=== PATIENT | female | born 1985 | race Hispanic/Latino ===

== ENCOUNTER 2017-12-31 18:18 | Emergency (ER) | payer SELFPAY ==
[2017-12-31] MEDS ORDERED: Adacel (T-DAP) 0.5 ML VIAL ONE (18:42)
== END 2017-12-31 19:03 | disposition home or self-care (01) ==
LOC: ERS 18:18
DX: L02.211 Cutaneous abscess of abdominal wall (principal); L03.311 Cellulitis of abdominal wall; E11.9 Type 2 diabetes mellitus without complications; F17.210 Nicotine dependence, cigarettes, uncomplicated; Z79.84 Long term (current) use of oral hypoglycemic drugs
CPT/HCPCS: 90471; 90715; 99406

== ENCOUNTER 2018-07-02 12:14 | Emergency (ER) | payer SELFPAY ==
--- NOTE | 2018-07-02 14:25 | RAD ---
4 VIEWS LEFT KNEE: Date: 07/02/18 HISTORY: Pain. FINDINGS: No joint effusion. No fracture or malalignment. Joint spaces are preserved. IMPRESSION: Unremarkable left knee 4 views. POS: [facility]
== END 2018-07-02 13:55 | disposition home or self-care (01) ==
LOC: ERS 12:14
DX: S83.92XA Sprain of unspecified site of left knee, initial encounter (principal); E11.9 Type 2 diabetes mellitus without complications; F17.210 Nicotine dependence, cigarettes, uncomplicated; Z71.6 Tobacco abuse counseling; X50.0XXA Overexertion from strenuous movement or load, initial encounter; Y93.01 Activity, walking, marching and hiking
CPT/HCPCS: 99406

== ENCOUNTER 2018-10-23 17:44 | Emergency (ER) | payer SELFPAY ==
[2018-10-23] MEDS ORDERED: Ketorolac Tromethamine 30 MG/ML VIAL ONE (19:22)
--- NOTE | 2018-10-23 20:35 | RAD ---
LEFT SHOULDER RADIOGRAPHS THREE VIEWS: 10/23/18 PROVIDED CLINICAL HISTORY: Left shoulder pain status post injury. FINDINGS: There is no evidence for fracture or other acute osseous abnormality. If there is persistent clinical concern, conservative management and followup imaging are advised. IMPRESSION: As above. POS: [facility]
== END 2018-10-23 19:55 | disposition home or self-care (01) ==
LOC: ERS 17:44
DX: S40.012A Contusion of left shoulder, initial encounter (principal); E11.9 Type 2 diabetes mellitus without complications; F17.210 Nicotine dependence, cigarettes, uncomplicated; W10.9XXA Fall (on) (from) unspecified stairs and steps, initial encounter
CPT/HCPCS: 96372; J1885

== ENCOUNTER 2019-08-19 17:50 | Emergency (ER) | payer SELFPAY | END 2019-08-19 21:18 | disposition home or self-care (01) | LOC: ERS 17:50 | DX: L02.31 Cutaneous abscess of buttock (principal); E11.9 Type 2 diabetes mellitus without complications; F17.210 Nicotine dependence, cigarettes, uncomplicated | CPT/HCPCS: 99282 ==

== ENCOUNTER 2021-06-24 08:02 | Inpatient (IN) | payer SELFPAY ==
[2021-06-24] MEDS ORDERED: Acetaminophen 500 MG TAB ONE (08:28)
[2021-06-24 08:56] LABS: #Eosinphils 0.2 thou/uL (0.0-0.7); #Lymphocytes 1.2 thou/uL (1.20-3.40); #Monocytes 0.6 thou/uL (0.11-0.59); #Neutrophils 10.6 thou/uL (1.40-6.50); %Basophils 0.1 % (0.0-1.0); %Eosinophils 1.8 % (0.0-10.0); %Lymphocytes 9.3 % (21.0-51.0); %Monocytes 4.8 % (0.0-10.0); Mean Corpuscular HGB CONC 31.2 g/dL (32.0-36.0); Mean Corpuscular Hemoglobin 23.6 pg (27.0-31.0); Mean Corpuscular Volume 75.6 fL (78.0-98.0); Mean Platelet Volume 9.1 fL (7.4-10.4); Platelet Count 466 thou/uL (130-400); RBC Distribution Width 14.9 % (11.5-14.5); Red Blood Cell (RBC) Count 5.09 mill/uL (4.20-5.40); White Blood Cell (WBC) Count 12.6 thou/uL (4.8-10.8)
[2021-06-24 09:23] LABS: ALT (SGPT) 17 U/L (8-55); AST (SGOT) 9 U/L (5-34); Albumin 3.5 g/dL (3.5-5.0); Alkaline Phosphatase 156 U/L (40-110); Anion Gap 12 mmol/L (10-20); BUN (Urea Nitrogen) Less than 4 mg/dL (7.0-18.7); Bilirubin, Total 0.6 mg/dL (0.2-1.2); Calc. Creatinine Clearance 0 mL/min (70-130); Calcium 9.1 mg/dL (7.8-10.44); Carbon Dioxide 26 mmol/L (22-29); Chloride 100 mmol/L (98-107); Globulin 3.5 g/dL (2.4-3.5); Glucose 359 mg/dL (70-105); Lipase 17 U/L (8-78); Potassium 4.3 mmol/L (3.5-5.1); Sodium 134 mmol/L (136-145)
[2021-06-24 10:06] LABS: SARS-CoV-2 NAA Rapid Test Not Detected (NotDetected)
[2021-06-24 10:19] LABS: Bilirubin Negative (Negative); Blood, Urine Negative (Negative); Clarity Clear (Clear); Glucose, Urine (Dipstick) Greater than 1000 mg/dL (Negative); Ketone, Urine 80 mg/dL (Negative); Leukocyte Negative Leu/uL (Negative); Nitrite Negative (Negative); Protein, Urine (Dipstick) 10 mg/dL (Neg-Trace); Specific Gravity, Urine 1.045 (1.002-1.036); Urobilinogen Normal mg/dL (Less than 2)
[2021-06-24 10:20] LABS: Pregnancy Test - Urine (BHCG) Negative (Negative); Pregu Control Background? CLEAR/WHITE (CLR/WHITE); Pregu Control Bar Appear? YES (CONTROL BAR); Specific Gravity 1.045 (1.002-1.036)
[2021-06-24] MEDS ORDERED: cefTRIAXone\\ROCEPHIN 1 GM VIAL ONE (11:24)
[2021-06-24] MEDS ORDERED: Iopamidol-370 76% 500 ML 1 ML ONE (12:29)
[2021-06-24] MEDS ORDERED: Ondansetron PF 4 MG/2 ML Vial IVP PRN (12:50)
[2021-06-24] MEDS ORDERED: Ondansetron ODT 4 MG TAB PO PRN (12:50)
[2021-06-24] MEDS ORDERED: Acetaminophen 650 MG Suppository PR PRN (12:50)
[2021-06-24] MEDS ORDERED: Enoxaparin Sodium 40 MG/0.4 ML SYRINGE SC SCH (13:00)
[2021-06-24] MEDS ORDERED: Vancomycin 1 GM in Premix Bag 1 BAG IVPB SCH (13:00)
[2021-06-24] MEDS ORDERED: Dextrose 50% Abboject 50 ML SYRINGE SLOW IVP PRN (14:49)
[2021-06-24] MEDS ORDERED: Dextrose 5% in Water 1,000 ML IV PRN (14:49)
[2021-06-24 15:14] LABS: Hemoglobin A1c 13.7 % (4.0-6.0)
[2021-06-24] MEDS: Guaifenesin DM 100-10/5 ML UDCUP PO PRN ×2 (15:52→20:49)
[2021-06-24] MEDS: Acetaminophen 325 MG TAB PO PRN ×2 (15:54→20:48)
[2021-06-24] MEDS: Insulin Regular 300 UNITS/3 ML VIAL SC PRN ×2 (16:17→20:50)
[2021-06-24] MEDS: Piperacillin/Tazobactam 3.375 GM in Sodium Chloride 0.9% 100 ML IVPB SCH ×2 (16:19→21:11)
[2021-06-24 18:27] VITALS: BMI 41.5
[2021-06-25] MEDS: Guaifenesin DM 100-10/5 ML UDCUP PO PRN ×5 (02:09→22:01)
[2021-06-25] MEDS: Acetaminophen 325 MG TAB PO PRN ×5 (02:09→22:01)
[2021-06-25] MEDS: Vancomycin HCl 1.25 GM in Sodium Chloride 0.9% 250 ML 250 ML IVPB SCH ×2 (02:11→17:18)
[2021-06-25] MEDS: Piperacillin/Tazobactam 3.375 GM in Sodium Chloride 0.9% 100 ML IVPB SCH (05:19)
[2021-06-25] MEDS: Insulin Regular 300 UNITS/3 ML VIAL SC PRN ×4 (05:22→20:49)
[2021-06-25 06:32] LABS: #Eosinphils 0.1 thou/uL (0.0-0.7); #Lymphocytes 1.6 thou/uL (1.20-3.40); #Neutrophils 11.7 thou/uL (1.40-6.50); %Basophils 0.3 % (0.0-1.0); %Eosinophils 0.4 % (0.0-10.0); %Lymphocytes 11.2 % (21.0-51.0); %Monocytes 6.7 % (0.0-10.0); %Neutrophils 81.4 % (42.0-75.0); Hemoglobin 10.9 g/dL (12.0-16.0); Mean Corpuscular HGB CONC 31.7 g/dL (32.0-36.0); Mean Corpuscular Volume 75.8 fL (78.0-98.0); Mean Platelet Volume 9.2 fL (7.4-10.4); Platelet Count 428 thou/uL (130-400); RBC Distribution Width 14.8 % (11.5-14.5); Red Blood Cell (RBC) Count 4.55 mill/uL (4.20-5.40); White Blood Cell (WBC) Count 14.4 thou/uL (4.8-10.8)
[2021-06-25 06:52] LABS: Anion Gap 13 mmol/L (10-20); BUN (Urea Nitrogen) Less than 4 mg/dL (7.0-18.7); Calc. Creatinine Clearance 211 mL/min (70-130); Calcium 8.2 mg/dL (7.8-10.44); Carbon Dioxide 21 mmol/L (22-29); Chloride 103 mmol/L (98-107); Glucose 266 mg/dL (70-105); Potassium 3.8 mmol/L (3.5-5.1); Sodium 133 mmol/L (136-145)
[2021-06-25] MEDS ORDERED: Sodium Chloride 0.9% 1,000 ML IV SCH (09:00)
[2021-06-25] MEDS ORDERED: Enoxaparin Sodium 40 MG/0.4 ML SYRINGE SC SCH (09:00)
[2021-06-25] MEDS: Lantus 1000 UNITS/10 ML VIAL SC SCH (09:27)
[2021-06-25 15:46] LABS: HIV (1/2) Antibody/Antigen Non-Reactive (NonReactive); HIV 1/2 INDEX 0.15 S/CO (<1.00)
[2021-06-25] MEDS: Cefepime 2 GM in Sodium Chloride 0.9% 100 ML IVPB SCH (16:12)
[2021-06-25 17:09] LABS: Strep pneumo Urine Ag NEGATIVE (NEGATIVE)
[2021-06-26] MEDS: Acetaminophen 325 MG TAB PO PRN ×3 (02:09→12:09)
[2021-06-26] MEDS: Guaifenesin DM 100-10/5 ML UDCUP PO PRN ×3 (02:09→12:01)
[2021-06-26 02:33] LABS: Vancomycin, Trough 3.6 ug/mL
[2021-06-26] MEDS: Cefepime 2 GM in Sodium Chloride 0.9% 100 ML IVPB SCH ×2 (03:06→17:06)
[2021-06-26] MEDS: Vancomycin HCl 1.5 GM in Sodium Chloride 0.9% 250 ML 300 ML IVPB SCH ×3 (04:08→21:44)
[2021-06-26] MEDS: Insulin Regular 300 UNITS/3 ML VIAL SC PRN ×2 (04:56→17:52)
[2021-06-26 08:20] LABS: #Monocytes 0.8 thou/uL (0.11-0.59); #Neutrophils 10.2 thou/uL (1.40-6.50); %Basophils 0.1 % (0.0-1.0); %Eosinophils 0.2 % (0.0-10.0); %Lymphocytes 8.4 % (21.0-51.0); %Monocytes 6.4 % (0.0-10.0); %Neutrophils 84.9 % (42.0-75.0); Hemoglobin 10.3 g/dL (12.0-16.0); Mean Corpuscular HGB CONC 31.3 g/dL (32.0-36.0); Mean Corpuscular Hemoglobin 23.8 pg (27.0-31.0); Mean Corpuscular Volume 76.2 fL (78.0-98.0); Mean Platelet Volume 8.5 fL (7.4-10.4); Platelet Count 452 thou/uL (130-400); RBC Distribution Width 14.5 % (11.5-14.5); Red Blood Cell (RBC) Count 4.33 mill/uL (4.20-5.40); White Blood Cell (WBC) Count 12.1 thou/uL (4.8-10.8)
[2021-06-26 08:38] LABS: Anion Gap 16 mmol/L (10-20); BUN (Urea Nitrogen) Less than 4 mg/dL (7.0-18.7); Calc. Creatinine Clearance 245 mL/min (70-130); Calcium 8.1 mg/dL (7.8-10.44); Carbon Dioxide 20 mmol/L (22-29); Chloride 102 mmol/L (98-107); Glucose 220 mg/dL (70-105); Potassium 3.5 mmol/L (3.5-5.1); Sodium 134 mmol/L (136-145)
[2021-06-26] MEDS: Lantus 1000 UNITS/10 ML VIAL SC SCH (08:39)
[2021-06-26] MEDS: Enoxaparin Sodium 40 MG/0.4 ML SYRINGE SC SCH (08:48)
[2021-06-26] MEDS ORDERED: Enoxaparin Sodium 60 MG/0.6 ML SYRINGE SC SCH (09:00)
[2021-06-26] MEDS ORDERED: Iopamidol-370 76% 500 ML 1 ML ONE (12:21)
[2021-06-26] MEDS ORDERED: Morphine 2 MG/ML VIAL SLOW IVP PRN (15:47)
[2021-06-26] MEDS: HYDROcodone/Acetaminophen 5/325 mg Tablet PO PRN ×2 (17:06→21:52)
[2021-06-27] MEDS: HYDROcodone/Acetaminophen 5/325 mg Tablet PO PRN ×4 (01:54→21:31)
[2021-06-27 03:33] LABS: #Eosinphils 0.1 thou/uL (0.0-0.7); #Monocytes 0.9 thou/uL (0.11-0.59); #Neutrophils 9.3 thou/uL (1.40-6.50); %Basophils 0.2 % (0.0-1.0); %Eosinophils 0.5 % (0.0-10.0); %Monocytes 7.5 % (0.0-10.0); %Neutrophils 82.8 % (42.0-75.0); Hemoglobin 10.4 g/dL (12.0-16.0); Mean Corpuscular HGB CONC 32.1 g/dL (32.0-36.0); Mean Corpuscular Hemoglobin 24.7 pg (27.0-31.0); Mean Corpuscular Volume 76.8 fL (78.0-98.0); Platelet Count 499 thou/uL (130-400); RBC Distribution Width 14.7 % (11.5-14.5); Red Blood Cell (RBC) Count 4.23 mill/uL (4.20-5.40); White Blood Cell (WBC) Count 11.3 thou/uL (4.8-10.8)
[2021-06-27 03:55] LABS: Vancomycin, Trough 12.8 ug/mL
[2021-06-27 03:56] LABS: Anion Gap 16 mmol/L (10-20); BUN (Urea Nitrogen) Less than 4 mg/dL (7.0-18.7); Calc. Creatinine Clearance 236 mL/min (70-130); Calcium 8.2 mg/dL (7.8-10.44); Carbon Dioxide 19 mmol/L (22-29); Chloride 104 mmol/L (98-107); Glucose 186 mg/dL (70-105); Potassium 3.2 mmol/L (3.5-5.1); Sodium 136 mmol/L (136-145)
[2021-06-27] MEDS: Cefepime 2 GM in Sodium Chloride 0.9% 100 ML IVPB SCH ×2 (04:05→16:48)
[2021-06-27] MEDS: Vancomycin HCl 1.5 GM in Sodium Chloride 0.9% 250 ML 300 ML IVPB SCH (05:03)
[2021-06-27] MEDS: Vancomycin HCl 1.75 GM in Sodium Chloride 0.9% 500 ML IVPB SCH ×2 (06:20→15:07)
[2021-06-27] MEDS ORDERED: Potassium Chloride 20 MEQ TAB PO SCH (08:00)
[2021-06-27] MEDS: Enoxaparin Sodium 40 MG/0.4 ML SYRINGE SC SCH (09:09)
[2021-06-27] MEDS: Lantus 1000 UNITS/10 ML VIAL SC SCH (09:09)
[2021-06-27] MEDS ORDERED: MEROPENEM 1 GM/50 ML 1 GM in Premix Bag 1 BAG IVPB SCH (16:15)
[2021-06-27] MEDS: Guaifenesin DM 100-10/5 ML UDCUP PO PRN (21:32)
[2021-06-27] MEDS ORDERED: Meropenem 1 GM in Sodium Chloride 0.9% 100 ML IVPB SCH (22:00)
[2021-06-28] MEDS: MEROPENEM 1 GM/50 ML 1 GM in Premix Bag 1 BAG IVPB SCH ×3 (01:45→16:29)
[2021-06-28] MEDS: HYDROcodone/Acetaminophen 5/325 mg Tablet PO PRN ×4 (02:25→19:45)
[2021-06-28 05:07] LABS: #Eosinphils 0.1 thou/uL (0.0-0.7); #Lymphocytes 1.4 thou/uL (1.20-3.40); #Neutrophils 9.6 thou/uL (1.40-6.50); %Basophils 0.1 % (0.0-1.0); %Eosinophils 0.5 % (0.0-10.0); %Lymphocytes 11.4 % (21.0-51.0); %Monocytes 8.1 % (0.0-10.0); %Neutrophils 79.9 % (42.0-75.0); Hemoglobin 10.2 g/dL (12.0-16.0); Mean Corpuscular HGB CONC 30.1 g/dL (32.0-36.0); Mean Corpuscular Hemoglobin 22.8 pg (27.0-31.0); Mean Corpuscular Volume 75.9 fL (78.0-98.0); Mean Platelet Volume 7.8 fL (7.4-10.4); Platelet Count 550 thou/uL (130-400); RBC Distribution Width 14.8 % (11.5-14.5); Red Blood Cell (RBC) Count 4.46 mill/uL (4.20-5.40)
[2021-06-28 05:37] LABS: Vancomycin, Trough 2.7 ug/mL
[2021-06-28 05:38] LABS: Anion Gap 14 mmol/L (10-20); BUN (Urea Nitrogen) Less than 4 mg/dL (7.0-18.7); Calc. Creatinine Clearance 231 mL/min (70-130); Calcium 8.6 mg/dL (7.8-10.44); Carbon Dioxide 20 mmol/L (22-29); Chloride 104 mmol/L (98-107); Glucose 191 mg/dL (70-105); Potassium 3.5 mmol/L (3.5-5.1); Sodium 134 mmol/L (136-145)
[2021-06-28] MEDS: Enoxaparin Sodium 40 MG/0.4 ML SYRINGE SC SCH (09:47)
[2021-06-28] MEDS: Lantus 1000 UNITS/10 ML VIAL SC SCH (09:48)
[2021-06-28 15:15] LABS: Cytoplasmic (C-ANCA) <1:20 titer (Neg:<1:20); Myeloperoxidase AutoAbs <9.0 U/mL (0.0-9.0); Perinuclear (P-ANCA) <1:20 titer (Neg:<1:20); Proteinase-3 AutoAbs 3.6 U/mL (0.0-3.5)
[2021-06-28] MEDS: Guaifenesin DM 100-10/5 ML UDCUP PO PRN (19:46)
[2021-06-29] MEDS: HYDROcodone/Acetaminophen 5/325 mg Tablet PO PRN (00:41)
[2021-06-29] MEDS: Guaifenesin DM 100-10/5 ML UDCUP PO PRN (00:44)
[2021-06-29] MEDS: MEROPENEM 1 GM/50 ML 1 GM in Premix Bag 1 BAG IVPB SCH ×3 (00:45→17:30)
[2021-06-29 06:08] LABS: #Lymphocytes 1.8 thou/uL (1.20-3.40); #Neutrophils 11.8 thou/uL (1.40-6.50); %Basophils 0.3 % (0.0-1.0); %Eosinophils 0.3 % (0.0-10.0); %Lymphocytes 12.4 % (21.0-51.0); %Monocytes 6.6 % (0.0-10.0); %Neutrophils 80.4 % (42.0-75.0); Mean Corpuscular HGB CONC 29.5 g/dL (32.0-36.0); Mean Corpuscular Hemoglobin 22.3 pg (27.0-31.0); Mean Corpuscular Volume 75.6 fL (78.0-98.0); Mean Platelet Volume 7.8 fL (7.4-10.4); Platelet Count 594 thou/uL (130-400); RBC Distribution Width 14.9 % (11.5-14.5); Red Blood Cell (RBC) Count 4.46 mill/uL (4.20-5.40); White Blood Cell (WBC) Count 14.7 thou/uL (4.8-10.8)
[2021-06-29 06:18] LABS: Anion Gap 14 mmol/L (10-20); BUN (Urea Nitrogen) Less than 4 mg/dL (7.0-18.7); Calc. Creatinine Clearance 215 mL/min (70-130); Calcium 8.3 mg/dL (7.8-10.44); Carbon Dioxide 23 mmol/L (22-29); Chloride 103 mmol/L (98-107); Glucose 190 mg/dL (70-105); Sodium 136 mmol/L (136-145)
[2021-06-29] MEDS: Lantus 1000 UNITS/10 ML VIAL SC SCH (08:52)
[2021-06-29] MEDS: Enoxaparin Sodium 40 MG/0.4 ML SYRINGE SC SCH (08:53)
[2021-06-29] MEDS ORDERED: Bupivacaine PF 0.5% 30 ML VIAL ONE (10:20)
[2021-06-29] MEDS ORDERED: EPINEPHrine 1 MG/ML AMP ONE (10:20)
[2021-06-29] MEDS ORDERED: Midazolam HCl 2 mg/2 ml Vial ONE ×2 (11:42→11:46)
[2021-06-29] MEDS ORDERED: Fentanyl 100 MCG/2 ML VIAL ONE ×3 (11:46→15:06)
[2021-06-29] MEDS ORDERED: Rocuronium Bromide 10 MG/ML (10ML VIAL) ONE (12:31)
[2021-06-29] MEDS ORDERED: Lidocaine 1% PF 5 ML VIAL ONE (12:31)
[2021-06-29] MEDS ORDERED: PROPOFOL 200 MG/20 ML VIAL ONE (12:31)
[2021-06-29] MEDS ORDERED: Ondansetron PF 4 MG/2 ML Vial ONE (12:31)
[2021-06-29] MEDS ORDERED: SUGAMMADEX SODIUM 200 MG/2 ML VIAL ONE (13:26)
[2021-06-29] MEDS ORDERED: PACU-Morphine 4MG/ML VIAL SLOW IVP PRN (14:15)
[2021-06-29] MEDS ORDERED: Promethazine HCl 25 MG/ML VIAL IM/IV PRN (14:15)
[2021-06-29] MEDS ORDERED: Ondansetron HCl/PF 4 MG/2 ML Vial IVP PRN (14:15)
[2021-06-29] MEDS ORDERED: Morphine Sulfate 2 MG/ML SYRINGE SLOW IVP PRN (14:15)
[2021-06-29] MEDS ORDERED: Morphine 4 MG/ML VIAL ONE (15:02)
[2021-06-29] MEDS ORDERED: Labetalol HCl 100 MG/20 ML VIAL ONE (15:16)
[2021-06-29] MEDS ORDERED: Morphine 2 MG/ML VIAL ONE ×2 (15:18→15:57)
[2021-06-29] MEDS ORDERED: Non-Formulary Medication 1 EACH PO PRN (15:47)
[2021-06-29] MEDS ORDERED: Ondansetron PF 4 MG/2 ML Vial IVP PRN (16:40)
[2021-06-29] MEDS: Insulin Regular 300 UNITS/3 ML VIAL SC PRN ×2 (17:28→20:22)
[2021-06-29] MEDS: Lactated Ringer's 1,000 ML IV SCH (17:28)
[2021-06-30] MEDS: HYDROcodone/Acetaminophen 5/325 mg Tablet PO PRN ×2 (00:29→20:05)
[2021-06-30] MEDS: MEROPENEM 1 GM/50 ML 1 GM in Premix Bag 1 BAG IVPB SCH ×3 (00:45→18:24)
[2021-06-30] MEDS: Insulin Regular 300 UNITS/3 ML VIAL SC PRN ×3 (05:49→20:23)
[2021-06-30] MEDS: Lactated Ringer's 1,000 ML IV SCH ×2 (05:49→08:41)
[2021-06-30 06:19] LABS: Hemoglobin 10.6 g/dL (12.0-16.0); Mean Corpuscular HGB CONC 30.3 g/dL (32.0-36.0); Mean Corpuscular Hemoglobin 23.1 pg (27.0-31.0); Mean Platelet Volume 7.8 fL (7.4-10.4); Platelet Count 629 thou/uL (130-400); Red Blood Cell (RBC) Count 4.59 mill/uL (4.20-5.40); White Blood Cell (WBC) Count 16.2 thou/uL (4.8-10.8)
[2021-06-30 06:33] LABS: Anion Gap 15 mmol/L (10-20); BUN (Urea Nitrogen) Less than 4 mg/dL (7.0-18.7); Calc. Creatinine Clearance 223 mL/min (70-130); Carbon Dioxide 22 mmol/L (22-29); Chloride 103 mmol/L (98-107); Glucose 254 mg/dL (70-105); Potassium 3.4 mmol/L (3.5-5.1); Sodium 137 mmol/L (136-145)
[2021-06-30 06:44] LABS: Lymphocytes 13 % (21-51); MDiff Complete? YES; Monocytes 8 % (0-10); Myelocyte 1 % (0-0); Neutrophil 78 % (42-75); Platelet Morphology Comment Appears Increased
[2021-06-30] MEDS: Polyethylene Glycol 3350 17 GM Packet PO SCH (08:38)
[2021-06-30] MEDS: Lantus 1000 UNITS/10 ML VIAL SC SCH (08:38)
[2021-06-30] MEDS: Enoxaparin Sodium 40 MG/0.4 ML SYRINGE SC SCH (08:39)
[2021-06-30] MEDS: Guaifenesin DM 100-10/5 ML UDCUP PO PRN ×2 (08:50→20:22)
[2021-07-01] MEDS: MEROPENEM 1 GM/50 ML 1 GM in Premix Bag 1 BAG IVPB SCH ×3 (08:12→16:56)
[2021-07-01] MEDS: Polyethylene Glycol 3350 17 GM Packet PO SCH (08:14)
[2021-07-01] MEDS: Lantus 1000 UNITS/10 ML VIAL SC SCH ×2 (08:14→20:29)
[2021-07-01] MEDS: Enoxaparin Sodium 40 MG/0.4 ML SYRINGE SC SCH (08:14)
[2021-07-01] MEDS: Lactated Ringer's 1,000 ML IV SCH (08:16)
[2021-07-01 10:46] LABS: #Eosinphils 0.1 thou/uL (0.0-0.7); #Lymphocytes 1.5 thou/uL (1.20-3.40); #Monocytes 0.8 thou/uL (0.11-0.59); #Neutrophils 8.2 thou/uL (1.40-6.50); %Basophils 0.1 % (0.0-1.0); %Eosinophils 0.8 % (0.0-10.0); %Lymphocytes 14.5 % (21.0-51.0); %Monocytes 7.1 % (0.0-10.0); %Neutrophils 77.6 % (42.0-75.0); Hemoglobin 9.8 g/dL (12.0-16.0); Mean Corpuscular HGB CONC 30.2 g/dL (32.0-36.0); Mean Platelet Volume 7.8 fL (7.4-10.4); Platelet Count 641 thou/uL (130-400); RBC Distribution Width 14.7 % (11.5-14.5); Red Blood Cell (RBC) Count 4.26 mill/uL (4.20-5.40); White Blood Cell (WBC) Count 10.6 thou/uL (4.8-10.8)
[2021-07-01 11:04] LABS: Anion Gap 12 mmol/L (10-20); BUN (Urea Nitrogen) Less than 4 mg/dL (7.0-18.7); Calc. Creatinine Clearance 245 mL/min (70-130); Carbon Dioxide 31 mmol/L (22-29); Chloride 99 mmol/L (98-107); Glucose 219 mg/dL (70-105); Potassium 3.2 mmol/L (3.5-5.1); Sodium 139 mmol/L (136-145)
[2021-07-01] MEDS: Insulin Regular 300 UNITS/3 ML VIAL SC PRN ×2 (12:03→16:56)
[2021-07-01] MEDS: HYDROcodone/Acetaminophen 5/325 mg Tablet PO PRN ×3 (13:34→22:17)
[2021-07-01] MEDS: Benzonatate 100 MG CAP PO PRN (17:51)
[2021-07-02] MEDS: MEROPENEM 1 GM/50 ML 1 GM in Premix Bag 1 BAG IVPB SCH ×3 (02:02→17:00)
[2021-07-02] MEDS: HYDROcodone/Acetaminophen 5/325 mg Tablet PO PRN ×3 (05:52→23:33)
[2021-07-02] MEDS: Insulin Regular 300 UNITS/3 ML VIAL SC PRN ×2 (05:53→12:05)
[2021-07-02] MEDS: Enoxaparin Sodium 40 MG/0.4 ML SYRINGE SC SCH (08:16)
[2021-07-02] MEDS: Polyethylene Glycol 3350 17 GM Packet PO SCH (08:16)
[2021-07-02] MEDS: Lantus 1000 UNITS/10 ML VIAL SC SCH ×2 (08:17→20:56)
[2021-07-02] MEDS: Benzonatate 100 MG CAP PO PRN ×2 (14:46→23:33)
[2021-07-03] MEDS: MEROPENEM 1 GM/50 ML 1 GM in Premix Bag 1 BAG IVPB SCH ×3 (01:17→17:25)
[2021-07-03] MEDS: Benzonatate 100 MG CAP PO PRN ×3 (04:41→14:24)
[2021-07-03] MEDS: Lantus 1000 UNITS/10 ML VIAL SC SCH (08:49)
[2021-07-03] MEDS: Enoxaparin Sodium 40 MG/0.4 ML SYRINGE SC SCH (08:49)
[2021-07-03] MEDS: Polyethylene Glycol 3350 17 GM Packet PO SCH (08:50)
[2021-07-03 08:55] VITALS: TEMP 98.7
[2021-07-03 09:42] LABS: #Eosinphils 0.1 thou/uL (0.0-0.7); #Lymphocytes 1.4 thou/uL (1.20-3.40); #Monocytes 0.7 thou/uL (0.11-0.59); #Neutrophils 5.4 thou/uL (1.40-6.50); %Basophils 0.4 % (0.0-1.0); %Eosinophils 0.8 % (0.0-10.0); %Lymphocytes 17.8 % (21.0-51.0); %Monocytes 9.4 % (0.0-10.0); %Neutrophils 71.6 % (42.0-75.0); Hemoglobin 10.1 g/dL (12.0-16.0); Mean Corpuscular HGB CONC 30.1 g/dL (32.0-36.0); Mean Corpuscular Hemoglobin 22.9 pg (27.0-31.0); Mean Corpuscular Volume 76.1 fL (78.0-98.0); Mean Platelet Volume 7.4 fL (7.4-10.4); Platelet Count 690 thou/uL (130-400); RBC Distribution Width 14.8 % (11.5-14.5); Red Blood Cell (RBC) Count 4.41 mill/uL (4.20-5.40); White Blood Cell (WBC) Count 7.6 thou/uL (4.8-10.8)
[2021-07-03 10:00] LABS: ALT (SGPT) 8 U/L (8-55); AST (SGOT) 12 U/L (5-34); Albumin 2.6 g/dL (3.5-5.0); Alkaline Phosphatase 133 U/L (40-110); Anion Gap 11 mmol/L (10-20); BUN (Urea Nitrogen) Less than 4 mg/dL (7.0-18.7); Bilirubin, Total 0.3 mg/dL (0.2-1.2); Calc. Creatinine Clearance 250 mL/min (70-130); Calcium 8.2 mg/dL (7.8-10.44); Carbon Dioxide 35 mmol/L (22-29); Chloride 98 mmol/L (98-107); Globulin 3.6 g/dL (2.4-3.5); Glucose 136 mg/dL (70-105); Protein, Total 6.2 g/dL (6.0-8.3); Sodium 141 mmol/L (136-145)
[2021-07-03] MEDS ORDERED: Polyethylene Glycol 3350 17 GM Packet PO PRN (11:10)
[2021-07-03] MEDS ORDERED: Potassium Chloride 20 MEQ TAB PO SCH ×2 (11:15→17:00)
[2021-07-03] MEDS: HYDROcodone/Acetaminophen 5/325 mg Tablet PO PRN (14:26)
[2021-07-03 17:33] VITALS: BP 115/76
== END 2021-07-03 18:44 | disposition home or self-care (01) | DRG 853 ==
LOC: ERS 08:02 → T4-A 11:51 → OBSVTOIN 20:36
PROVIDERS: ADMIT Internal Medicine; ATTEND Family Medicine
PROC: 0BNK4ZZ Release Right Lung, Percutaneous Endoscopic Approach (ICD-10-PCS; principal; 2021-06-29)
DX: A41.9 Sepsis, unspecified organism (principal); J18.8 Other pneumonia, unspecified organism; J86.9 Pyothorax without fistula; Z68.41 Body mass index [BMI] 40.0-44.9, adult; J90 Pleural effusion, not elsewhere classified; E11.65 Type 2 diabetes mellitus with hyperglycemia; E66.01 Morbid (severe) obesity due to excess calories; Z20.822 Contact with and (suspected) exposure to COVID-19; E88.09 Other disorders of plasma-protein metabolism, not elsewhere classified; F17.210 Nicotine dependence, cigarettes, uncomplicated; E87.6 Hypokalemia; D64.9 Anemia, unspecified; Z79.899 Other long term (current) drug therapy; Z91.14 Patient's other noncompliance with medication regimen
CPT/HCPCS: 36415; 36416; 71045; 71046; 71260; 74177; 80048; 80053; 80202; 81003; 81025; 83036; 83520; 83605; 83690; 84484; 85025; 85379; 86140; 86256; 86480; 86850; 86900; 86901; 87040; 87070; 87081; 87205; 87389; 87449; 93005; 96365; 96367; 96372; 96375; G0378; J0171; J0692; J0696; J1642; J1650; J1815; J2185; J2250; J2270; J2405; J2543; J2704; J3010; J3370; J3490; J7030; J7050; J7120; Q9967; S0020; U0002

== ENCOUNTER 2021-09-14 08:31 | Emergency (ER) | payer OTHER, SELFPAY ==
[2021-09-14] MEDS ORDERED: Cyclobenzaprine 10 MG TAB ONE (09:39)
[2021-09-14] MEDS ORDERED: Ketorolac Tromethamine 30 MG/ML VIAL ONE (09:39)
== END 2021-09-14 10:07 | disposition home or self-care (01) ==
LOC: ERS 08:31
DX: R07.81 Pleurodynia (principal); E11.9 Type 2 diabetes mellitus without complications; F17.210 Nicotine dependence, cigarettes, uncomplicated; X50.0XXA Overexertion from strenuous movement or load, initial encounter; Y92.69 Other specified industrial and construction area as the place of occurrence of the external cause
CPT/HCPCS: 96372; 99283; J1885

== ENCOUNTER 2022-04-02 08:21 | Outpatient (CLI) | payer OTHER | END 2022-04-02 08:22 | disposition home or self-care (01) | LOC: BICULT 08:21 | PROVIDERS: ATTEND Family Medicine | DX: O09.523 Supervision of elderly multigravida, third trimester (principal); Z3A.28 28 weeks gestation of pregnancy | CPT/HCPCS: 76805; 93975 ==

== ENCOUNTER 2022-04-16 19:22 | Emergency (ER) | payer OTHER ==
[2022-04-16 20:30] LABS: Bilirubin 1+ (Negative); Blood, Urine Negative (Negative); Clarity Turbid (Clear); Glucose, Urine (Dipstick) Normal (Negative); Ketone, Urine Negative (Negative); Leukocyte Negative Leu/uL (Negative); Nitrite Negative (Negative); Protein, Urine (Dipstick) 20 mg/dL (Neg-Trace); Specific Gravity, Urine 1.017 (1.002-1.036)
[2022-04-16 20:34] LABS: Bacteria/HPF 2+ HPF (None Seen); RBC/HPF 0-3 HPF (0-3); WBC/HPF 0-3 HPF (0-3)
== END 2022-04-16 21:44 | disposition short-term general hospital (02) ==
LOC: ERS 19:22
DX: O99.891 Other specified diseases and conditions complicating pregnancy (principal); M54.50 Low back pain, unspecified; O24.113 Pre-existing type 2 diabetes mellitus, in pregnancy, third trimester; O99.333 Smoking (tobacco) complicating pregnancy, third trimester; F17.210 Nicotine dependence, cigarettes, uncomplicated; Z3A.30 30 weeks gestation of pregnancy
CPT/HCPCS: 81003; 87086; 99284